=== PATIENT | female | born 1935 | race Caucasian/White ===

== ENCOUNTER 2019-03-28 12:54 | Emergency (ER) | payer BC, OTHER ==
[~2019-03-28] VITALS: Ht 170.2 cm; Wt 100.9 kg
[~2019-03-28 12:54] MED LIST: ALBU8.5H8; BACITUD; CLIN300C2; GLIM4TAB55; HYDR25TA6; LORA-408; NAPR-987; PRED20TA; VALS160T20; [UNRECOGNIZED DRUG - CODE]
[2019-03-28 12:55] VITALS: Ht 170.2 cm; Wt 100.9 kg
[2019-03-28] MEDS ORDERED: HYDROmorphONE 0.5 MG/0.5 ML SYG IV STA (13:17)
[2019-03-28] MEDS ORDERED: ONDANSETRON 4 MG INJ IV STA (13:17)
[2019-03-28] MEDS ORDERED: SOD CHLORIDE 0.9% 1,000 ML IV STA (13:17)
--- NOTE | 2019-03-28 13:34 | ERD ---
ER Documentation Chief Complaint Chief Complaint fr home headache x4 days, worse today, no relief with meds HPI 83-year-old female presents with her family member who is interpreting. The patient is approximately 4 days of a bandlike headache that started to the occipital region and is now bandlike across the entirety of the head. No vision changes, no jaw claudication. Patient has some mild lightheadedness. She denies any chest pain or abdominal pain. Mild shortness of breath was noted with associated headache. Headache became slightly worse today therefore presenting to the emergency room. No recent falls or injuries fevers or chills or rash. ROS All systems reviewed and are negative except as per history of present illness. Medications Home Meds Reported Medications Furosemide* (Furosemide*) 40 Mg Tablet, 40 MG PO DAILY, TAB 03/28/19 Potassium Chloride* (K-Dur*) 10 Meq Tab.prt.sr, 10 MEQ PO DAILY, TAB 03/28/19 Omeprazole* (Omeprazole*) 40 Mg Capsule.dr, 40 MG PO DAILY, #30 CAP 03/28/19 Metformin Hcl* (Metformin Hcl*) 1,000 Mg Tablet, 1000 MG PO WITH BREAKFAST DINNE, #60 TAB 03/28/19 Losartan Potassium* (Losartan Potassium*) 100 Mg Tablet, 100 MG PO DAILY, TAB 03/28/19 Atorvastatin* (Atorvastatin*) 40 Mg Tablet, 40 MG PO QHS, #30 TAB 03/28/19 Duloxetine Hcl* (Duloxetine Hcl*) 20 Mg Capsule.dr, 20 MG PO DAILY, #30 CAP 03/28/19 Insulin Glargine* (Lantus*) 100 Unit/Ml Soln, 50 UNIT SC QHS, #1 VIAL 03/28/19 Aspirin* (Aspirin* EC) 81 Mg Tablet.dr, 81 MG PO DAILY, TAB 03/28/19 Discontinued Reported Medications Bacitracin (Bacitracin Oint) 0.9 Gm Oint 01/16/10 Glimepiride* (Amaryl*) 4 Mg Tablet 01/16/10 Topiramate (Topamax) 25 Mg Cap 01/16/10 Prednisone (Prednisone) 20 Mg Tablet 01/16/10 Valsartan* (Diovan*) 160 Mg Tablet 01/16/10 Clindamycin Hcl* (Cleocin*) 300 Mg Cap 01/16/10 Hydrochlorothiazide (Hydrochlorothiazide) 25 Mg Tablet 01/16/10 Naproxen (Ec-Naprosyn) 500 Mg Tablet. 01/16/10 Lorazepam (Ativan) 1 Mg Tablet 01/16/10 Albuterol Sulfate* (Proair HFA*) 8.5 Gm Hfa.aer.ad 01/16/10 Allergies Allergies: Coded Allergies: morphine (Verified Allergy, Unknown, 03/28/19) PMhx/Soc History of Surgery: No Anesthesia Reaction: No Hx Neurological Disorder: Yes (SEIZURE) Hx Respiratory Disorders: No Hx Cardiac Disorders: No Hx Psychiatric Problems: No Hx Miscellaneous Medical Probl: Yes (ARTHRITIS) Hx Alcohol Use: No Hx Substance Use: No Hx Tobacco Use: No Smoking Status: Never smoker FmHx Family History: No diabetes Physical Exam Vitals Vital Signs Date Temp Pulse Resp B/P (MAP) Pulse Ox O2 O2 Flow FiO2 Time Delivery Rate 03/28/19 69 15 143/53 98 Room Air 14:15 (83) 03/28/19 97.7 69 18 172/75 100 12:55 (107) Physical Exam General: Lightly uncomfortable. Head: Normocephalic, atraumatic. Eyes: Pupils equally reactive, EOM intact ENT: Moist mucous membranes Neck: Supple, no lymphadenopathy Respiratory: Lungs clear bilaterally, no distress Cardiovascular: RRR, no murmurs, rubs, or gallops Abdominal: Soft, non-tender, non-distended, no peritoneal signs : Deferred MSK: No edema, no unilateral swelling, 5/5 strength Neurologic: Alert and oriented, moving all extremities, normal speech, no focal weakness, no cerebellar signs Skin: No rash Psych: Normal mood Result Diagram: 03/28/19 1325 03/28/19 1325 Results 24 hrs Laboratory Tests Test 03/28/19 13:25 White Blood Count 5.8 10^3/ul Red Blood Count 4.21 10^6/ul Hemoglobin 10.6 g/dl Hematocrit 32.4 % Mean Corpuscular Volume 77.0 fl Mean Corpuscular Hemoglobin 25.2 pg Mean Corpuscular Hemoglobin Concent 32.7 g/dl Red Cell Distribution Width 16.1 % Platelet Count 191 10^3/UL Mean Platelet Volume 9.7 fl Immature Granulocytes % 0.200 % Neutrophils % 61.6 % Lymphocytes % 27.3 % Monocytes % 8.5 % Eosinophils % 1.9 % Basophils % 0.5 % Nucleated Red Blood Cells % 0.0 /100WBC Immature Granulocytes # 0.010 10^3/ul Neutrophils # 3.6 10^3/ul Lymphocytes # 1.6 10^3/ul Monocytes # 0.5 10^3/ul Eosinophils # 0.1 10^3/ul Basophils # 0.0 10^3/ul Nucleated Red Blood Cells # 0.0 10^3/ul Prothrombin Time 13.8 Sec Prothrombin Time Ratio 1.1 INR International Normalized Ratio 1.05 Activated Partial Thromboplast Time 32.9 Sec Sodium Level 130 mmol/L Potassium Level 3.5 mmol/L Chloride Level 91 mmol/L Carbon Dioxide Level 29 mmol/L Anion Gap 10 Blood Urea Nitrogen 9 mg/dl Creatinine 0.62 mg/dl Est Glomerular Filtrat Rate mL/min mL/min Glucose Level 171 mg/dl Calcium Level 8.9 mg/dl Troponin I < 0.012 ng/ml Current Medications Medications Dose Sig/Hi Start Time Status Last (Trade) Ordered Route PRN Stop Time Admin Dose Reason Admin Sodium 1,000 ml @ Q1H STAT 03/28/19 DC 03/28/19 Chloride 1,000 mls/hr IV 13:17 13:42 03/28/19 14:16 1,000 mg ONCE STAT 03/28/19 DC Acetaminophen PO 13:17 (Tylenol 03/28/19 13:18 Tab) Ondansetron 4 mg ONCE STAT 03/28/19 DC 03/28/19 HCl (Zofran IV 13:17 13:42 Inj) 03/28/19 13:18 0.5 mg ONCE STAT 03/28/19 DC 03/28/19 Hydromorphone IV 13:17 13:42 HCl 03/28/19 13:18 (Dilaudid) Procedures/MDM EKG, MONITORS, & DIAGNOSTIC IMAGING: EKG EKG: I reviewed and interpreted a 12-lead EKG. Rhythm: Normal sinus rhythm ST Changes: No contiguous ST segment elevations T waves: No contiguous T wave inversions Impression: No evidence of acute cardiac ischemia CT brain: No acute process per radiologist read Chest x-ray: Chest x-ray: I reviewed and interpreted a 1 view of the chest Mediastinum: No enlargement Cardiac silhouette: No cardiomegaly Airspace: Left-sided pleural effusion continues to be stable from baseline Bones: No evidence of fracture LAB INTERPRETATION: I reviewed the laboratory testing and it shows no evidence of acute process MEDICAL DECISION MAKING: The patient's headache is unlikely related to serious etiology. The patient does not exhibit any clinical signs or symptoms, and has no risk factors to suggest headache etiology such as subarachnoid hemorrhage, acute vertebral or carotid dissection, intracranial mass, epidural, subdural hematoma, dural venous sinus thrombosis, giant cell arteritis, or pseudotumor cerebri. The patient's bandlike description seems very consistent with tension-like headache. The patient again has no jaw claudication or vision changes to suggest giant cell arteritis. ESR and CRP not indicated currently. However, given the patient's age and elevated blood pressure CT of the brain will be appropriate to related to cranial hemorrhage. ER COURSE: * IV fluids and pain control medication provided * She is feeling much better and back to her baseline. * Radiologist read of chest x-ray was concerning for possible left infiltrate but I do not appreciate this on the chest x-ray. The patient has no fever no cough no hypoxia no significant shortness of breath that would suggest pneumonia. Additionally, normal white blood cell count without left shift. I do not believe that CT or antibiotics are necessary. Outpatient follow-up appropriate. * Her main complaint is headache which is consistent with a tension headache. Work-up is negative and the patient can be safely discharged with strict return precautions. CONSULTATION: None DISPOSITION PLAN: The patient does not have an identifiable emergent medical condition that warrants inpatient hospitalization at this time. The patient is deemed safe for discharge with outpatient follow-up. We discussed follow up with the patient's primary care doctor within 24 to 48 hours as needed. We also discussed return to the emergency room for worsening symptoms or worsening condition. Outpatient referral: None required Discharge Medications: [id number] Tylenol or Motrin Departure Diagnosis: Primary Impression: Tension headache Additional Impression: Chronic hyponatremia Condition: CRISTIN Barton MD Mar 28, 2019 13:34
[2019-03-28] MEDS: ACETAMINOPHEN 500 MG TAB PO STA ×2 (13:42→13:47)
[2019-03-28] MEDS ORDERED: ASPI-817 PO (14:24)
[2019-03-28] MEDS ORDERED: LANT3I SC (14:24)
[2019-03-28] MEDS ORDERED: ATOR40TA68 PO (14:25)
[2019-03-28] MEDS ORDERED: DULO20CA17 PO (14:25)
[2019-03-28] MEDS ORDERED: METF100010 PO (14:26)
[2019-03-28] MEDS ORDERED: LOSA100T15 PO (14:26)
[2019-03-28] MEDS ORDERED: OMEP40CA6 PO (14:27)
[2019-03-28] MEDS ORDERED: POTA10TA37 PO (14:28)
[2019-03-28] MEDS ORDERED: FURO40TA4 PO (14:29)
[2019-03-28 16:05] VITALS: BP 153/66; PULSE 70; RESP 18
== END 2019-03-28 16:05 | disposition home or self-care (01) ==
LOC: E/R 12:54
DX: G44.209 Tension-type headache, unspecified, not intractable (principal); E87.1 Hypo-osmolality and hyponatremia; E11.9 Type 2 diabetes mellitus without complications; Z79.4 Long term (current) use of insulin; Z79.82 Long term (current) use of aspirin
CPT/HCPCS: 70450; 71045; 80048; 84484; 85025; 85610; 85730; 93005; J1170; J2405; J7030; 36415; 96361; 96374; 96375